=== PATIENT | male | born 1995 | race American Indian/Alaskan Native ===

== ENCOUNTER 2019-03-27 14:46 | Emergency (ER) | payer SELFPAY ==
[2019-03-27 15:02] VITALS: BP 113/70
--- NOTE | 2019-03-27 15:06 | Emergency Department Report ---
Chief Complaint: Extremity Injury, Upper Stated Complaint: RT SHOULDER/WANTS HIV TEST Time Seen by Provider: 03/27/19 14:58 - HPI History of Present Illness: pt presents with right shoulder pain for over a year no fall or injury no numbness or weakness the main reason pt states he presents for routine STD testing states that he wants HIV testing pts HR elevated in triage, repeat is 95 bpm pt states that he feels anxious and is concerned for HIV advised pt that he needs an EKG to check the rhythm of his heart pt eloped because routine STD testing is not performed in the ER states he is going [facility] the [facility] - Exam Vital Signs: Vital Signs 03/27/19 15:00 Temperature 97.1 F L Pulse Rate 130 H Respiratory 16 Rate Blood Pressure 113/70 O2 Sat by Pulse 97 Oximetry MSE screening note: Focused history and physical exam performed. Due to findings the following was ordered: ED Disposition for MSE Clinical Impression: Concern about STD in male without diagnosis Shoulder pain Qualifiers: Chronicity: chronic Laterality: right Qualified Code(s): M25.511 - Pain in right shoulder Disposition: Z-07 ELOPED Is pt being admited?: No Does the pt Need Aspirin: No Condition: Undetermined Time of Disposition: 15:02 Print Language: IRISH
== END 2019-03-27 15:05 | disposition left against medical advice (07) ==
LOC: ED 14:46
DX: M25.511 Pain in right shoulder (principal); Z20.2 Contact with and (suspected) exposure to infections with a predominantly sexual mode of transmission
CPT/HCPCS: 99281